=== PATIENT | female | born 1980 | race Native Hawaiian/Other Pacific Islander ===

== ENCOUNTER 2020-08-04 16:10 | Emergency (ER) | payer OTHER ==
[~2020-08-04] VITALS: Ht 162.6 cm; Wt 53.5 kg
[2020-08-04 16:10] VITALS: BP 170/88; TEMP 98
[2020-08-04 16:37] LABS: PLATELET COUNT 338 K/uL (152-353)
[2020-08-04 17:18] LABS: POTASSIUM 4.2 mmol/L (3.6-5.2)
[2020-08-04] MEDS ORDERED: NYAMYC100000 UNI EX (22:39)
[2020-08-04] MEDS ORDERED: FLUDROCORT0.1 MG PO (22:42)
[2020-08-04] MEDS ORDERED: FLUTICASON50 MCG/AC1 NAS (22:46)
[2020-08-04] MEDS ORDERED: FOLI1TAB26 PO (22:48)
[2020-08-04] MEDS ORDERED: CLARITIN10 MG PO (22:49)
[2020-08-04] MEDS ORDERED: ENSURE PO (22:52)
[2020-08-04] MEDS ORDERED: POTASSIUM CHLO20 ME1 PO (22:53)
[2020-08-04] MEDS ORDERED: OMEPRAZOLE20 M2 PO (22:55)
[2020-08-04] MEDS ORDERED: ONE DAILY MULTI1 TA3 PO (22:56)
[2020-08-04] MEDS ORDERED: MUPI2OIN2 TOP (22:58)
[2020-08-04] MEDS ORDERED: MIDODRINE10 MG PO (22:59)
[2020-08-04] MEDS ORDERED: STOOL SOFTNR100 MG PO (23:01)
[2020-08-04] MEDS ORDERED: FLUOXETINE20 MG PO (23:01)
[2020-08-04] MEDS ORDERED: VIMPAT200 M1 PO (23:03)
[2020-08-04] MEDS ORDERED: DIVALPROEX DR PO (23:05)
[2020-08-04] MEDS ORDERED: BANZEL400 MG PO (23:06)
[2020-08-04] MEDS ORDERED: TOPAMAX100 MG PO (23:07)
[2020-08-04] MEDS ORDERED: MONTELUKAST SOD10 MG PO (23:09)
[2020-08-04] MEDS ORDERED: PHENOBARB64.8 MG PO (23:10)
[2020-08-04] MEDS ORDERED: HYDROCORT2.5 % EX (23:15)
[2020-08-04] MEDS ORDERED: IBU400 MG PO (23:17)
[2020-08-04] MEDS ORDERED: MAGNSUS68 PO (23:18)
[2020-08-04] MEDS ORDERED: [UNRECOGNIZED DRUG - OTHER] EX (23:21)
[2020-08-04] MEDS ORDERED: MIRALAX17 GM PO (23:37)
[2020-08-04] MEDS ORDERED: ABACAVIR SULFAT1 TAB PO (23:38)
[2020-08-14] MEDS ORDERED: FLUOXETINE20 MG PO (09:28)
[2020-08-14] MEDS ORDERED: MIRTAZAPINE7.5 MG PO (09:28)
[2020-08-14] MEDS ORDERED: DIVALPROEX500 MG PO (09:28)
[2020-08-14] MEDS ORDERED: ARIPIPRAZOLE5 MG PO (09:29)
[2020-08-14] MEDS ORDERED: PHEN30TA PO (09:30)
== END 2020-08-04 18:36 | disposition still patient (30) ==
LOC: ED 16:10
PROVIDERS: Emergency Medicine Emergency Medical Services
DX: F32.89 Other specified depressive episodes (principal); Z11.59 Encounter for screening for other viral diseases; Z04.6 Encounter for general psychiatric examination, requested by authority
CPT/HCPCS: 80053; 85027; 87635; 93005; 99283; U0003

== ENCOUNTER 2022-12-08 19:44 | Emergency (ER) | payer OTHER ==
[~2022-12-08] VITALS: Ht 157.5 cm; Wt 60.3 kg
[~2022-12-08 19:44] MED LIST: ABACAVIR SULFAT1 TAB PO; ARIPIPRAZOLE5 MG PO; BANZEL400 MG PO; CLARITIN10 MG PO; DIVALPROEX DR PO; DIVALPROEX500 MG PO; ENSURE PO; FLUDROCORT0.1 MG PO; FLUOXETINE20 MG PO; FLUTICASON50 MCG/AC1 NAS; FOLI1TAB26 PO; IBU400 MG PO; MAGNSUS68 PO; MIDODRINE10 MG PO; MIRALAX17 GM PO; MIRTAZAPINE7.5 MG PO; MONTELUKAST SOD10 MG PO; MUPI2OIN2 TOP; NYAMYC100000 UNI TOP; OMEP20CA PO; ONE DAILY MULTI1 TA3 PO; PHEN30TA PO; PHENOBARB64.8 MG PO; POTASSIUM CHLO20 ME1 PO; PROCTO-MED HC2.5 % TOP; STOOL SOFTNR100 MG PO; TOPAMAX100 MG PO; VIMPAT200 M1 PO; [UNRECOGNIZED DRUG - OTHER] EX
[2022-12-08 19:45] VITALS: BP 118/68; TEMP 97.6
[2022-12-08 20:20] LABS: PLATELET COUNT 339 K/uL (152-353)
[2022-12-08 20:49] LABS: POTASSIUM 3.8 mmol/L (3.6-5.2)
[2022-12-09] MEDS ORDERED: ARIPIPRAZOLE10 MG PO (07:43)
[2022-12-09] MEDS ORDERED: BUSPIRONE5 MG PO (07:44)
[2022-12-09] MEDS ORDERED: DIVA250T PO (07:44)
[2022-12-09] MEDS ORDERED: ENSURE PO (07:45)
[2022-12-09] MEDS ORDERED: DIVALPROEX500 MG PO (07:45)
[2022-12-09] MEDS ORDERED: FLUOXETINE40 MG PO (07:46)
[2022-12-09] MEDS ORDERED: MIRTAZAPINE7.5 MG PO (07:49)
[2022-12-09] MEDS ORDERED: PHENOBARB64.8 MG PO (07:50)
[2022-12-09] MEDS ORDERED: LACO200T PO (07:52)
== END 2022-12-08 21:48 | disposition other institution (70) ==
LOC: ED 19:44
PROVIDERS: Emergency Medicine
DX: F31.9 Bipolar disorder, unspecified (principal); Z02.79 Encounter for issue of other medical certificate
CPT/HCPCS: 36415; 80053; 81000; 85027; 87086; 87088; 87635; 93005; 99283; U0003